=== PATIENT | female | born 1970 | race Caucasian/White ===

== ENCOUNTER 2018-05-23 22:32 | Emergency (ER) | payer SELFPAY, OTHER | END 2018-05-23 23:10 | disposition home or self-care (01) | LOC: ER 22:32 | DX: L23.9 Allergic contact dermatitis, unspecified cause (principal); Z88.0 Allergy status to penicillin; Z88.2 Allergy status to sulfonamides; Z88.1 Allergy status to other antibiotic agents; Z91.041 Radiographic dye allergy status; Z91.040 Latex allergy status | CPT/HCPCS: 99283 ==

== ENCOUNTER 2018-05-25 03:20 | Emergency (ER) | payer SELFPAY ==
[2018-05-25] MEDS: DEXAMETHASONE 4 MG TABLET PO (04:07)
[2018-05-25] MEDS: FAMOTIDINE 20 MG TABLET. PO (04:07)
== END 2018-05-25 04:11 | disposition home or self-care (01) ==
LOC: ER 03:20
DX: L29.9 Pruritus, unspecified (principal); F10.10 Alcohol abuse, uncomplicated; Y90.9 Presence of alcohol in blood, level not specified; Z90.89 Acquired absence of other organs; Z88.0 Allergy status to penicillin; Z88.2 Allergy status to sulfonamides; Z88.8 Allergy status to other drugs, medicaments and biological substances; Z88.1 Allergy status to other antibiotic agents; Z91.041 Radiographic dye allergy status; Z91.040 Latex allergy status
CPT/HCPCS: 99283; J8540